=== PATIENT | male | born 1955 | race African-American/Black ===

== ENCOUNTER 2023-12-10 10:58 | Emergency (ER) | payer MEDICARE ==
[~2023-12-10] VITALS: Ht 175.3 cm; Wt 65.0 kg
[2023-12-10 11:07] VITALS: BP 152/84; PULSE 84; RESP 16; TEMP 98.5; O2SAT 98
[2023-12-10] MEDS ORDERED: TETANUS, DIPHTHERIA, PERTUSSIS VAC/PF 0.5ML (>10YR OLD) IM ONE (11:30)
[2023-12-10] MEDS ORDERED: LIDOCAINE HCL/PF 1% 10 MG/ML 5ML VIAL INFIL ONE (11:30)
[2023-12-10] MEDS ORDERED: BACITRACIN ZINC OINT UDPKT TOP ONE (11:30)
[2023-12-10] MEDS: BACITRACIN ZINC OINT UDPKT TOP NR (13:25)
[2023-12-10] MEDS: LIDOCAINE HCL/PF 1% 10 MG/ML 5ML VIAL INFIL NR (13:25)
[2023-12-10] MEDS: TETANUS, DIPHTHERIA, PERTUSSIS VAC/PF 0.5ML (>10YR OLD) IM ONE (13:54)
[2023-12-10] MEDS ORDERED: TOPUD MT (15:32)
== END 2023-12-10 16:11 | disposition home or self-care (01) ==
LOC: ER 10:58
DX: S01.01XA Laceration without foreign body of scalp, initial encounter (principal); S16.1XXA Strain of muscle, fascia and tendon at neck level, initial encounter; I10 Essential (primary) hypertension; E11.9 Type 2 diabetes mellitus without complications; W18.39XA Other fall on same level, initial encounter; Y93.89 Activity, other specified; Y92.89 Other specified places as the place of occurrence of the external cause; Y99.8 Other external cause status
CPT/HCPCS: 99285; 70450; 72125; 90715; 12004; 90471; J3490